=== PATIENT | female | born 1995 | race Caucasian/White ===

== ENCOUNTER 2023-04-17 17:47 | Emergency (ER) | payer MEDICAID ==
[~2023-04-17] VITALS: Ht 152.4 cm; Wt 72.6 kg
[2023-04-17 17:58] VITALS: BP_SYST 114; PULSE 99; RESP 13; TEMP 97.7; O2SAT 0
[2023-04-17 19:11] VITALS: BP_SYST 114; PULSE 99; RESP 13; TEMP 97.7; O2SAT 0
== END 2023-04-17 19:11 | disposition home or self-care (01) ==
LOC: SED 17:47
DX: B34.9 Viral infection, unspecified (principal); J02.9 Acute pharyngitis, unspecified; R09.81 Nasal congestion; J34.89 Other specified disorders of nose and nasal sinuses; J45.909 Unspecified asthma, uncomplicated; Z79.899 Other long term (current) drug therapy
CPT/HCPCS: 99281